=== PATIENT | male | born 1970 | race Caucasian/White ===

== ENCOUNTER → 2024-11-16 06:39 | Outpatient (CLI) | payer OTHER, SELFPAY ==
--- NOTE | 2024-11-16 06:42 | DI.ECHO.S_ITS ---
[facility] : : [address] : : [place] : : [id number] : : Phone: [phone] Echocardiogram Report + + :Name: CLINTON TRAVIS Study Date: 11/16/2024 Height: 69 in : :Hospital ReadingLocation: Weight: 225 lb : : Gender: Male BSA: 2.2 m2 : :: 1970 Age: 54 yrs BP: 136/91 mmHg: :Reason For Study: ARRHYTHMIAS WITH MILD LEFT ATRIAL : :ENLARGEMENT : :Ordering Physician: FREDDY, : :ZORAIDA LAMBERT Performed By: Alison Byers : :Referring: ZORAIDA HAYES PA-C : + + Interpretation Summary 1. The left ventricular contractility is normal. Estimate ejection fraction is greater than 55% with no segmental wall motion abnormalities. No LVH. Normal diastolic function. 2. The right ventricle contractility is normal. 3. Borderline right ventricular enlargement. All other cardiac chambers are of normal size. 4. Mild tricuspid regurgitation with estimated pulmonary systolic artery pressures of 27 mmHg. 5. Mild mitral regurgitation. 6. No obvious intracardiac shunts. 7. No obvious intracardiac masses nor thrombi. 8. No hemodynamically significant pericardial effusion. 9. Low right-sided filling pressures. Conclusion: Normal biventricular function with borderline right ventricular enlargement and mild valvular insufficiencies. Procedure: A two-dimensional transthoracic echocardiogram with color flow and Doppler was performed. The study quality was technically adequate. There is no prior echocardiogram noted for this patient. The patient was in sinus bradycardia with heart rates between 54-61 bpm during the exam. Left Ventricle: The left ventricle is normal in size and wall thickness. The ejection fraction is estimated to be 55-60%. Right Ventricle: The right ventricle is borderline dilated. The right ventricular systolic function is normal. Atria: The left atrial size is normal. Right atrial size is normal. There is no Doppler evidence for an interatrial shunt. Mitral Valve: The mitral valve leaflets appear to open well. There is mild mitral regurgitation. Aortic Valve: The aortic valve is trileaflet. The aortic valve opens well. There is no aortic valve stenosis. No aortic regurgitation is present. Tricuspid Valve: The tricuspid valve leaflets are thin and pliable. There is mild tricuspid regurgitation. The right ventricular systolic pressure is estimated to be at least 27 mmHg based on an estimated right atrial pressure of 3 mm Hg. Pulmonic Valve: The pulmonic valve leaflets are thin and pliable; valve motion is normal. There is no pulmonic valvular regurgitation. Great Vessels: The aortic root is normal size. The dimensions of the ascending aorta are normal. The IVC is of normal diameter and collapses greater than 50% with a sniff. This suggests a low right atrial pressure of 3 mm Hg. Pericardium/ Pleura There is no pericardial effusion. There is no pleural effusion. MMode/2D Measurements & Calculations LVIDd: 5.1 cm LVOT diam: 2.1 cm LVIDs: 3.6 cm Ao root diam: 3.6 cm FS: 29.6 % asc Aorta Diam: 3.6 cm EPSS: 0.81 cm IVSd: 1.1 cm LVPWd: 0.92 cm LV blackburn. diameter/BSA (cm/m^2): 2.4 LV sys. diameter/BSA (cm/m^2): 1.7 LA A2 area: 18.9 cm2 RA long axis: 5.7 cm LA A4 area: 22.3 cm2 RA area: 20.1 cm2 LA length (vol): 6.4 cm RA vol: 60.8 ml LA vol: 56.1 ml RA : 28.0 ml/m2 LA vol index: 25.8 ml/m2 IVC diam: 1.8 cm RVD1 (basal): 4.0 cm RVD2 (mid): 4.2 cm TAPSE: 2.1 cm Doppler Measurements & Calculations Ao V2 max: 99.8 cm/sec LVOT Max Abel: 78.5 cm/sec Ao V2 mean: 71.6 cm/sec LV V1 max P.5 mmHg Ao max P.0 mmHg LV V1 VTI: 18.1 cm Ao mean P.3 mmHg AMANDO(I,D): 3.0 cm2 Ao V2 VTI: 20.5 cm AMANDO(V,D): 2.7 cm2 sev ratio: 0.88 AMANDO indexed to BSA (cm^2/m^2): 1.4 MV E max abel: 66.6 cm/sec TR max abel: 246.9 cm/sec MV A max abel: 38.7 cm/sec TR max P.4 mmHg MV E/A: 1.7 PA V2 max: 82.5 cm/sec Med Peak E' Abel: 7.8 cm/sec PA V2 mean: 53.8 cm/sec E/E' med: 8.6 PA mean P.3 mmHg Lat Peak E' Abel: 12.3 cm/sec PA pr(Accel): 46.9 mmHg E/E' lat: 5.4 E/e' average: 7.0 MV dec time: 0.20 sec SV(LVOT): 62.2 ml Reading Physician:YULIANA
== END ==
LOC: ECHO 06:41
PROVIDERS: Referring Provider Physician Assistant; Visit Provider Physician Assistant
DX: Z00.00 Encounter for general adult medical examination without abnormal findings (principal); I08.1 Rheumatic disorders of both mitral and tricuspid valves
CPT/HCPCS: 93306